=== PATIENT | male | born 1950 | race Caucasian/White ===

== ENCOUNTER 2016-12-22 17:22 | Emergency (ER) | payer MEDICAID ==
[~2016-12-22] VITALS: Ht 188 cm; Wt 90.7 kg
[~2016-12-22 17:22] MED LIST: AZITHROMYCIN250 MG ORAL
[2016-12-22 17:48] VITALS: BP 132/93
[2016-12-22] MEDS ORDERED: VENTOLIN HFA18 GM INH (17:56)
[2016-12-22] MEDS ORDERED: AZITHROMYCIN250 MG ORAL (17:56)
[2016-12-22] MEDS ORDERED: Azithromycin 250mg tab ORAL ONE (18:00)
[2016-12-22 18:01] VITALS: BP 125/78
--- NOTE | 2016-12-22 18:01 | Emergency Room Report ---
History of Present Illness General Chief Complaint: Dyspnea/Respdistress Source: Patient Present Illness HPI 66YOM walk-in with cough, right sided chest pain with cough (not at rest). Smoker for "long time." States history of "bronchitis" but no formal Dx of COPD. Denies fever/chills, abd pain, SOB, sick contacts. Couldnt get in to see PMD until Mid-December so came to ED. Allergies: Coded Allergies: No Known Allergies (Unverified , 10/24/14) Patient History Past Medical History: other - ?copd Past Surgical History: none Pertinent Family History: none Social History: Reports: smoking Immunizations: UTD Reviewed Nursing Documentation: PMH: Agreed, PSxH: Agreed Nursing Documentation-PMH Past Medical History: No History, Except For Hx Cardiac Problems: Yes - a fib Hx COPD: Yes - bronchitis Review of Systems All Other Systems: negative except mentioned in HPI Physical Exam Vital Signs Date Time Temp Pulse Resp B/P Pulse Ox O2 Delivery O2 Flow Rate FiO2 12/22/16 17:37 98.8 92 16 113/73 94 Room Air Sp02 EP Interpretation: reviewed, normal General Appearance: normal inspection, well appearing, no apparent distress, alert, GCS 15, non-toxic Head: normocephalic, atraumatic Eyes: bilateral eye EOMI, bilateral eye PERRL Neck: normal inspection, full range of motion, supple, no bony tend Respiratory: normal inspection, lungs clear, normal breath sounds, no rhonchi, no respiratory distress, no retraction, no accessory muscle use, no wheezing, speaking full sentences Cardiovascular #1: regular rate, rhythm, no edema, normal capillary refill Gastrointestinal: normal inspection, normal bowel sounds, non tender, soft, no guarding, no hernia Genitourinary: no CVA tenderness Musculoskeletal: normal inspection, back normal, normal range of motion, Gris' s Sign negative Neurologic: normal inspection, alert, oriented x3, responsive, marketing sales manager III-XII nml as tested, motor strength/tone normal, speech normal Psychiatric: normal inspection, judgement/insight normal, mood/affect normal Skin: normal inspection, normal color, no rash Lymphatic: normal inspection Medical Decision Making Diagnostic Impression: Primary Impression: CAP (community acquired pneumonia) ER Course Cough, SOB for 1-2 days VSS. Afebrile. Very well appearing. No acute distress No wheezing or rhonchi on exam No systemic symptoms to warrant additional lab, imaging, admission Advised to quit smoking Will tx empirically for COPD exac/CAP with Azithro. Initial dose given in ED. Rx for next 4 days Rx for cough syrup, ventolin PMD followup Last Vital Signs Date Time Temp Pulse Resp B/P Pulse Ox O2 Delivery O2 Flow Rate FiO2 12/22/16 17:48 83 16 Room Air 12/22/16 17:48 97.6 132/93 97 Status: improved Disposition: HOME, SELF-CARE Condition: Improved Scripts Albuterol Sulfate (VENTOLIN HFA) 18 Gm Hfa.aer.ad 1 PUFF INH EVERY 6 HOURS for For Cough, #18 GM 0 Refills Prov: DAISY NATARAJAN M.D. 12/22/16 Azithromycin* (ZITHROMAX*) 250 Mg Tablet 250 MG ORAL DAILY for 4 Days, #4 TAB 0 Refills Prov: DAISY NATARAJAN M.D. 12/22/16 Referrals: YOREFERRING (PCP) Patient Instructions: Community-Acquired Pneumonia, Adult, [id number] Additional Instructions: - Take azithromycin next 4 days as prescribed - Use ventolin inhaler during the day for cough - Drink tea with honey for cough/congestion at night - Follow up with your doctor as needed DAISY NATARAJAN M.D. December 22, 2016 18:01
[2016-12-22] MEDS ORDERED: PHENERGAN6.25 MG/5 ORAL (18:11)
== END 2016-12-22 18:12 | disposition home or self-care (01) ==
LOC: EMR 17:57
DX: J18.9 Pneumonia, unspecified organism (principal); J44.9 Chronic obstructive pulmonary disease, unspecified; I48.91 Unspecified atrial fibrillation; F17.200 Nicotine dependence, unspecified, uncomplicated
CPT/HCPCS: 99284; Q0144

== ENCOUNTER 2017-02-09 13:21 | Emergency (ER) | payer MEDICAID, OTHER ==
[~2017-02-09] VITALS: Ht 190.5 cm; Wt 99.8 kg
[~2017-02-09 13:21] MED LIST changes: +PHENERGAN6.25 MG/5 ORAL; +VENTOLIN HFA18 GM INH
[2017-02-09] MEDS ORDERED: METOPROLOL TART25 MG ORAL (13:36)
[2017-02-09] MEDS ORDERED: ASPIRIN81 MG ORAL (13:36)
[2017-02-09 13:39] VITALS: BP 118/72
[2017-02-09 14:00] VITALS: BP 125/77
[2017-02-09] MEDS ORDERED: Ipratropium 0.02% Inh Soln 2.5ml UD HHN ONE (14:00)
[2017-02-09] MEDS ORDERED: Azithromycin 500 MG in NS 275 ML IV ONE (14:00)
[2017-02-09] MEDS ORDERED: Solu-MEDROL 125mg Inj IVP ONE (14:00)
[2017-02-09] MEDS ORDERED: Azithromycin Inj IV ONE (14:08)
[2017-02-09] MEDS: Albuterol ud Inhalation HHN SCH ×3 (14:16→14:40)
--- NOTE | 2017-02-09 14:30 | Diagnostic Imaging Report ---
Indication: DYSPNEA Technique: One view of the chest Comparison: 10/24/2014 Findings: Lungs and pleural spaces are clear. Heart size is normal . No significant change Impression: No acute process
[2017-02-09 15:00] VITALS: BP 129/58
[2017-02-09 15:00] LABS: BASOPHILS % (AUTO) 1.4 % (0.0-2.0); EOSINOPHILS % (AUTO) 5.6 % (0.0-3.0); LYMPHOCYTES % (AUTO) 39.9 % (20.0-45.0); MEAN CORPUSCULAR HEMOGLOBIN 33.2 PG (27.0-31.0); MEAN CORPUSCULAR HGB CONC 32.4 G/DL (32.0-36.0); MEAN CORPUSCULAR VOLUME 102 FL (80-99); MONOCYTES % (AUTO) 8.6 % (1.0-10.0); NEUTROPHILS % (AUTO) 44.5 % (45.0-75.0); PLATELET COUNT 253 K/UL (150-450); RED BLOOD COUNT 3.93 M/UL (4.70-6.10); RED CELL DISTRIBUTION WIDTH 11.7 % (11.6-14.8); WHITE BLOOD COUNT 9.8 K/UL (4.8-10.8)
[2017-02-09 15:17] LABS: PROTHROMBIN TIME 10.4 SEC (9.30-11.50)
[2017-02-09 15:19] LABS: ALANINE AMINOTRANSFERASE 12 U/L (3-41); ALBUMIN/GLOBULIN RATIO 1.4 (1.0-2.7); ANION GAP 9 (5-15); ASPARTATE AMINO TRANSFERASE 20 U/L (5-40); CALCIUM 9.4 mg/dL (8.6-10.2); CARBON DIOXIDE 30 mEQ/L (20-30); CHLORIDE 99 mEQ/L (98-107); GLOMERULAR FILTRATION RATE > 60 mL/min (>60); HEMOLYSIS 57; POTASSIUM 4.9 mEQ/L (3.4-4.9); SODIUM 138 mEQ/L (135-145); TOTAL PROTEIN 7.4 g/dL (6.6-8.7); TROPONIN I < 0.30 ng/mL (<=0.30)
--- NOTE | 2017-02-09 15:43 | Emergency Room Report ---
History of Present Illness General Chief Complaint: Dyspnea/Respdistress Source: Patient Present Illness HPI Patient presents with dyspnea on exertion. Some wheezes. Has been worsening over past several days. Smokes. Not have nebulizer at home and denies use of inhaler recently. Has not been this dyspneic in past. No calf tenderness or h/ o clots. Has a fib and was taken off of blood thinners except for aspirin. Denies CHF. Chest pressure more than pain. No fevers, chills. Sputum has been clear. No NVD, dysuria, extremity pain, rashes, headaches, change vision, polydipsia. Allergies: Coded Allergies: No Known Allergies (Unverified , 10/24/14) Patient History Past Medical History: see triage record Social History: Reports: smoking Social History Narrative at home Reviewed Nursing Documentation: PMH: Agreed, PSxH: Agreed Nursing Documentation-PMH Hx Cardiac Problems: Yes - a fib Hx COPD: Yes - bronchitis Review of Systems All Other Systems: negative except mentioned in HPI Physical Exam Vital Signs Date Time Temp Pulse Resp B/P Pulse Ox O2 Delivery O2 Flow Rate FiO2 02/09/17 13:29 98.2 90 17 118/72 94 02/09/17 13:39 Room Air 02/09/17 14:12 100 Sp02 EP Interpretation: reviewed, abnormal - interpreted as low by me General Appearance: well appearing, no apparent distress, GCS 15 Head: normocephalic Eyes: bilateral eye PERRL, bilateral eye normal inspection ENT: moist mucus membranes Neck: supple Respiratory: wheezing, expiration Cardiovascular #1: regular rate, rhythm, irregularly irregular Cardiovascular #2: 2+ radial (R) Gastrointestinal: normal inspection, normal bowel sounds, non tender, no mass, non-distended Musculoskeletal: back normal, gait/station normal, normal range of motion, no calf tenderness Neurologic: alert, oriented x3, grossly normal Psychiatric: mood/affect normal Skin: normal inspection, warm/dry Medical Decision Making Diagnostic Impression: Primary Impression: Bronchospasm with bronchitis, acute Additional Impressions: Eosinophilia Atrial fibrillation Qualified Codes: I48.2 - Chronic atrial fibrillation ER Course Patient presents with dyspnea. DDx: AMI, ACS, CHF, COPD exacerbation, PNA, PE amongst others. Exam with bronchospasm. Evaluation with EKG, CXR, labs. Treatment with solumedrol and breathing treatments. EKG, a fib, rate controlled, no ischemia. CXR, COPD, Labs with normal WBC with eosinophilia. Improved with treatment. I suggested hospitalization. 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 Patient ambulated. Some breathlessness and desat to 89-91. I recommended admission again. He states he can't. One more breathing treatment. Improved, but still with low O2 sats. Laboratory Tests Test 02/09/17 14:40 White Blood Count 9.8 K/UL (4.8-10.8) Red Blood Count 3.93 M/UL (4.70-6.10) L Hemoglobin 13.0 G/DL (14.2-18.0) L Hematocrit 40.2 % (42.0-52.0) L Mean Corpuscular Volume 102 FL (80-99) H Mean Corpuscular Hemoglobin 33.2 PG (27.0-31.0) H Mean Corpuscular Hemoglobin Concent 32.4 G/DL (32.0-36.0) Red Cell Distribution Width 11.7 % (11.6-14.8) Platelet Count 253 K/UL (150-450) Mean Platelet Volume 6.0 FL (6.5-10.1) L Neutrophils (%) (Auto) 44.5 % (45.0-75.0) L Lymphocytes (%) (Auto) 39.9 % (20.0-45.0) Monocytes (%) (Auto) 8.6 % (1.0-10.0) Eosinophils (%) (Auto) 5.6 % (0.0-3.0) H Basophils (%) (Auto) 1.4 % (0.0-2.0) Prothrombin Time 10.4 SEC (9.30-11.50) Prothrombin Time INR 1.0 (0.9-1.1) PTT 28 SEC (23-33) Sodium Level 138 mEQ/L (135-145) Potassium Level 4.9 mEQ/L (3.4-4.9) Chloride Level 99 mEQ/L (98-107) Carbon Dioxide Level 30 mEQ/L (20-30) Anion Gap 9 (5-15) Blood Urea Nitrogen 16 mg/dL (7-23) Creatinine 1.0 mg/dL (0.7-1.2) Estimate Glomerular Filtration Rate > 60 mL/min (>60) Glucose Level 99 mg/dL (74-106) Lactic Acid Level 1.20 mmol/L (0.66-2.22) Calcium Level 9.4 mg/dL (8.6-10.2) Total Bilirubin 0.4 mg/dL (0.0-1.2) Aspartate Amino Transferase (AST) 20 U/L (5-40) Alanine Aminotransferase (ALT) 12 U/L (3-41) Alkaline Phosphatase 55 U/L (40-129) Total Creatine Kinase 61 U/L (38-174) Troponin I < 0.30 ng/mL (<=0.30) Pro-B-Type Natriuretic Peptide Pending Total Protein 7.4 g/dL (6.6-8.7) Albumin 4.4 g/dL (3.5-5.2) Globulin 3.0 g/dL Albumin/Globulin Ratio 1.4 (1.0-2.7) EKG Diagnostic Results Rate: normal Rhythm: other - a fib ST Segments: no acute changes Rhythm Strip Diag. Results EP Interpretation: yes Rhythm: no PVC's, no ectopy, other - afib Chest X-Ray Diagnostic Results Chest X-Ray Diagnostic Results : Chest X-Ray Ordered: Yes # of Views/Limited/Complete: 1 View Indication: Shortness of Breath Interpretation: no consolidation, no effusion, no pneumothorax, other - COPD Impression: Other Interpreting ER Provider: Electronic signature Greyson Hawkins MD Last Vital Signs Date Time Temp Pulse Resp B/P Pulse Ox O2 Delivery O2 Flow Rate FiO2 02/09/17 16:53 98.2 96 17 112/64 100 Room Air 21 Status: improved Disposition: HOME, SELF-CARE Condition: Improved Scripts Azithromycin* (ZITHROMAX*) 250 Mg Tablet 250 MG ORAL DAILY, #4 TAB 0 Refills Prov: Greyson Hawkins M.D. 02/09/17 Prednisone* (PREDNISONE*) 10 Mg Tablet 10 MG ORAL DAILY, #21 TAB 0 Refills 4 po QD X 2, 3 po QD X 2, 2 po QD X 2, 1 po QD X 4 Prov: Greyson Hawkins M.D. 02/09/17 Albuterol Sulfate* (ALBUTEROL SULFATE MDI*) 8.5 Gm Hfa.aer.ad 2 PUFF INH Q6H, #1 EA 0 Refills Prov: Greyson Hawkins M.D. 02/09/17 Referrals: [facility] (PCP) Greyson Hawkins M.D. Feb 09, 2017 15:43
[2017-02-09] MEDS ORDERED: Albuterol ud Inhalation HHN ONE (15:45)
[2017-02-09 16:00] VITALS: BP 112/64
[2017-02-09] MEDS ORDERED: ALBUTEROL SULF8.5 GM INH (16:48)
[2017-02-09] MEDS ORDERED: PREDNISONE10 MG ORAL (16:48)
[2017-02-09] MEDS ORDERED: AZITHROMYCIN250 MG ORAL (16:48)
[2017-02-09 16:53] VITALS: BP 112/64
--- NOTE | 2017-02-14 19:07 | Cardiology Report ---
APPROVED REPORT EKG Measurement Heart [id number] Atrial fibrillation Nonspecific T wave abnormality Abnormal ECG
== END 2017-02-09 16:59 | disposition home or self-care (01) ==
LOC: EMR 13:52
DX: J20.9 Acute bronchitis, unspecified (principal); D72.1 Eosinophilia; I48.91 Unspecified atrial fibrillation; J44.9 Chronic obstructive pulmonary disease, unspecified; F17.200 Nicotine dependence, unspecified, uncomplicated
CPT/HCPCS: 36415; 71010; 80053; 82550; 83605; 83880; 84484; 85025; 85610; 85730; 93005; 94640; 94664; 96360; 96361; 96374; 99284; J0456; J2930; J7050

== ENCOUNTER 2017-02-18 14:24 | Emergency (ER) | payer MEDICAID ==
[~2017-02-18] VITALS: Ht 190.5 cm; Wt 95.3 kg
[~2017-02-18 14:24] MED LIST changes: +ALBUTEROL SULF8.5 GM INH; +ASPIRIN81 MG ORAL; +METOPROLOL TART25 MG ORAL; +PREDNISONE10 MG ORAL
[2017-02-18] MEDS ORDERED: Ipratropium 0.02% Inh Soln 2.5ml UD HHN ONE (14:45)
[2017-02-18] MEDS ORDERED: Albuterol ud Inhalation HHN SCH (14:45)
--- NOTE | 2017-02-18 15:05 | Emergency Room Report ---
History of Present Illness General Chief Complaint: Upper Respiratory Illness Source: Patient, Medical Record Present Illness HPI This patient states that he has had recurrent episodes of bronchitis. He has a long heavy smoking history. He admits that he does continue to smoke. She does understand that he needs to stop smoking, however, he has been unable to do so. He states that he was noticed these episodes over the past several years. He states over the past couple months they have become more severe. He has not seen his primary care physician for this. He has not seen a truck jumper. He states that he was seen here in the emergency department a week ago. He states that he was given breathing treatments, antibiotics and felt much better. He states he was doing well until the past few days and he continues to feel short of breath. He denies fever or chills. Denies sputum production. He denies chest pain. He has no other complaints. Allergies: Coded Allergies: No Known Allergies (Unverified , 10/24/14) Patient History Past Medical History: see triage record, AFib, COPD Social History: Reports: alcohol use, smoking, Denies: drug use Reviewed Nursing Documentation: PMH: Agreed, PSxH: Agreed Nursing Documentation-PMH Hx Cardiac Problems: Yes - a fib Hx COPD: Yes - bronchitis Review of Systems All Other Systems: negative except mentioned in HPI Physical Exam Vital Signs Date Time Temp Pulse Resp B/P Pulse Ox O2 Delivery O2 Flow Rate FiO2 02/18/17 14:27 97.9 87 18 109/76 94 Room Air 02/18/17 14:51 2.0 Sp02 EP Interpretation: reviewed, normal General Appearance: no apparent distress, alert, GCS 15, non-toxic Head: normocephalic, atraumatic Eyes: bilateral eye PERRL, bilateral eye normal inspection ENT: hearing grossly normal, normal pharynx, no angioedema, normal voice Neck: full range of motion, supple/symm/no masses Respiratory: chest non-tender, no respiratory distress, no retraction, no accessory muscle use, decreased breath sounds, speaking full sentences Cardiovascular #1: no edema, irregularly irregular Gastrointestinal: normal bowel sounds, non tender, soft, non-distended, no guarding, no rebound Rectal: deferred Musculoskeletal: back normal, gait/station normal, normal range of motion, non- tender Neurologic: alert, oriented x3, responsive, motor strength/tone normal, sensory intact, speech normal Psychiatric: judgement/insight normal, memory normal, mood/affect normal, no suicidal/homicidal ideation Skin: normal color, no rash, warm/dry, well hydrated Medical Decision Making Diagnostic Impression: Primary Impression: Bronchitis ER Course This patient has a clinical presentation consistent with rhonchi the/COPD. Patient has a history heavy smoking. The patient was given albuterol and Atrovent nebulizer treatments. The patient was also given prednisone orally. The patient had significant improvement in subjective shortness of breath. The patient's lung exam improved significantly. I educated the patient on the importance of following up with her primary care physician. Also educated him that he should be seen by a truck jumper and undergo spirometry testing to clearly assess his lung disease. He needs to be on presented of COPD medications. He was educated on the importance of smoking cessation. The patient was given close return precautions and followup instructions. Labs Test 02/18/17 14:50 White Blood Count 13.7 K/UL (4.8-10.8) Red Blood Count 4.27 M/UL (4.70-6.10) Hemoglobin 13.9 G/DL (14.2-18.0) Hematocrit 43.5 % (42.0-52.0) Mean Corpuscular Volume 102 FL (80-99) Mean Corpuscular Hemoglobin 32.6 PG (27.0-31.0) Mean Corpuscular Hemoglobin Concent 32.0 G/DL (32.0-36.0) Red Cell Distribution Width 11.8 % (11.6-14.8) Platelet Count 326 K/UL (150-450) Mean Platelet Volume 5.4 FL (6.5-10.1) Neutrophils (%) (Auto) 49.1 % (45.0-75.0) Lymphocytes (%) (Auto) 38.5 % (20.0-45.0) Monocytes (%) (Auto) 6.3 % (1.0-10.0) Eosinophils (%) (Auto) 4.9 % (0.0-3.0) Basophils (%) (Auto) 1.2 % (0.0-2.0) Sodium Level 138 mEQ/L (135-145) Potassium Level 5.0 mEQ/L (3.4-4.9) Chloride Level 99 mEQ/L (98-107) Carbon Dioxide Level 30 mEQ/L (20-30) Anion Gap 9 (5-15) Blood Urea Nitrogen 16 mg/dL (7-23) Creatinine 1.0 mg/dL (0.7-1.2) Estimat Glomerular Filtration Rate > 60 mL/min (>60) Glucose Level 81 mg/dL (74-106) Calcium Level 9.3 mg/dL (8.6-10.2) Total Bilirubin 0.4 mg/dL (0.0-1.2) Aspartate Amino Transf (AST/SGOT) 23 U/L (5-40) Alanine Aminotransferase (ALT/SGPT) 19 U/L (3-41) Alkaline Phosphatase 49 U/L (40-129) Troponin I < 0.30 ng/mL (<=0.30) Pro-B-Type Natriuretic Peptide 726 pg/mL (0-125) Total Protein 6.8 g/dL (6.6-8.7) Albumin 4.1 g/dL (3.5-5.2) Globulin 2.7 g/dL Albumin/Globulin Ratio 1.5 (1.0-2.7) EKG Diagnostic Results Rate: normal Rhythm: other ST Segments: no acute changes Other Impression A.fib Rhythm Strip Diag. Results EP Interpretation: yes Rate: 80's Rhythm: no PVC's, no ectopy, other Other Impression A.fib Chest X-Ray Diagnostic Results Chest X-Ray Diagnostic Results : Chest X-Ray Ordered: Yes # of Views/Limited/Complete: 1 View Indication: Shortness of Breath Interpretation: no consolidation, no effusion, no pneumothorax, no acute cardiopulmonary disease Impression: No acute disease Interpreting ER Provider: Osei Last Vital Signs Date Time Temp Pulse Resp B/P Pulse Ox O2 Delivery O2 Flow Rate FiO2 02/18/17 14:51 81 17 99 Nasal Cannula 2.0 02/18/17 14:27 97.9 109/76 Status: improved Disposition: HOME, SELF-CARE Condition: Improved Referrals: [facility] (PCP) SAUL PIERRE D.O. Feb 18, 2017 15:05
[2017-02-18 15:13] LABS: BASOPHILS % (AUTO) 1.2 % (0.0-2.0); EOSINOPHILS % (AUTO) 4.9 % (0.0-3.0); LYMPHOCYTES % (AUTO) 38.5 % (20.0-45.0); MEAN CORPUSCULAR HEMOGLOBIN 32.6 PG (27.0-31.0); MEAN CORPUSCULAR VOLUME 102 FL (80-99); MEAN PLATELET VOLUME 5.4 FL (6.5-10.1); MONOCYTES % (AUTO) 6.3 % (1.0-10.0); NEUTROPHILS % (AUTO) 49.1 % (45.0-75.0); PLATELET COUNT 326 K/UL (150-450); RED BLOOD COUNT 4.27 M/UL (4.70-6.10); RED CELL DISTRIBUTION WIDTH 11.8 % (11.6-14.8); WHITE BLOOD COUNT 13.7 K/UL (4.8-10.8)
--- NOTE | 2017-02-18 15:21 | Diagnostic Imaging Report ---
Indication: Dyspnea Comparison: 02/09/17 A single view chest radiograph was obtained. Findings: No definite infiltrate or pulmonary vascular congestion identified. The heart is enlarged. The aorta is mildly enlarged consistent with atherosclerotic vascular disease. The bones are osteopenic. Impression: No acute disease
[2017-02-18 15:26] VITALS: BP 113/67
[2017-02-18 15:30] LABS: TROPONIN I < 0.30 ng/mL (<=0.30)
[2017-02-18] MEDS ORDERED: PredniSONE 20mg tab ORAL ONE (15:30)
[2017-02-18 15:33] LABS: ALANINE AMINOTRANSFERASE 19 U/L (3-41); ALBUMIN/GLOBULIN RATIO 1.5 (1.0-2.7); ANION GAP 9 (5-15); ASPARTATE AMINO TRANSFERASE 23 U/L (5-40); CALCIUM 9.3 mg/dL (8.6-10.2); CARBON DIOXIDE 30 mEQ/L (20-30); CHLORIDE 99 mEQ/L (98-107); GLOMERULAR FILTRATION RATE > 60 mL/min (>60); HEMOLYSIS 144; SODIUM 138 mEQ/L (135-145); TOTAL PROTEIN 6.8 g/dL (6.6-8.7)
[2017-02-18 16:00] VITALS: BP 113/76
== END 2017-02-18 16:00 | disposition left against medical advice (07) ==
LOC: EMR 14:46
DX: J40 Bronchitis, not specified as acute or chronic (principal); F17.200 Nicotine dependence, unspecified, uncomplicated; I48.91 Unspecified atrial fibrillation
CPT/HCPCS: 36415; 71010; 80053; 83880; 84484; 85025; 93005; 94640; 99283

== ENCOUNTER 2017-03-23 22:45 | Emergency (ER) | payer MEDICAID ==
[~2017-03-23] VITALS: Ht 190.5 cm; Wt 99.8 kg
[2017-03-23] MEDS ORDERED: PERCOCET 10-321 EAC1 PO (22:57)
[2017-03-23] MEDS ORDERED: TAMSULOSIN HCL0.4 MG ORAL (22:57)
[2017-03-23] MEDS ORDERED: AMBIEN10 MG ORAL (22:57)
[2017-03-23] MEDS ORDERED: EFFEXOR37.5 MG PO (22:57)
[2017-03-23] MEDS ORDERED: Ipratropium 0.02% Inh Soln 2.5ml UD HHN ONE (23:00)
[2017-03-23] MEDS ORDERED: Albuterol ud Inhalation HHN ONE (23:00)
[2017-03-23] MEDS ORDERED: PredniSONE 20mg tab ORAL ONE (23:00)
[2017-03-23] MEDS ORDERED: AZITHROMYCIN250 MG ORAL (23:07)
[2017-03-23] MEDS ORDERED: PREDNISONE20 MG ORAL (23:07)
--- NOTE | 2017-03-23 23:07 | Emergency Room Report ---
History of Present Illness General Chief Complaint: Dyspnea/Respdistress Source: Patient Present Illness HPI Is a 66-year-old male who has a history of COPD and still smokes half a pack a day. He presents with chief complaint of shortness of breath and wheezing for the last 2 weeks. He started on a nebulizer machine and is not helping much. Also a steroid inhaler. No fever or chills but no nausea vomiting. Worse with exertion. Worse with inspiration. Better with breathing treatment. Denies any other complaint. Has not been on antibiotics. Allergies: Coded Allergies: No Known Allergies (Unverified , 10/24/14) Patient History Past Medical History: see triage record, old chart reviewed, COPD Past Surgical History: other Pertinent Family History: none Social History: Reports: smoking Immunizations: other Reviewed Nursing Documentation: PMH: Agreed, PSxH: Agreed Nursing Documentation-PMH Hx Cardiac Problems: Yes - A. fib Hx COPD: Yes Review of Systems Eye: Denies: eye pain, blurred vision ENT: Denies: ear pain, nose congestion, throat swelling Respiratory: Reports: cough, shortness of breath, wheezing Cardiovascular: Denies: chest pain, palpitations Gastrointestinal: Denies: abdominal pain, diarrhea, nausea, vomiting Musculoskeletal: Denies: back pain, joint pain Skin: Denies: rash Neurological: Denies: headache, numbness Endocrine: Denies: increased thirst, increased urine Hematologic/Lymphatic: Denies: easy bruising All Other Systems: negative except mentioned in HPI Physical Exam Vital Signs Date Time Temp Pulse Resp B/P (MAP) Pulse Ox O2 Delivery O2 Flow Rate FiO2 03/23/17 22:51 98.8 100 18 112/72 95 Room Air vitals normal Sp02 EP Interpretation: reviewed, normal General Appearance: well appearing, no apparent distress, alert Head: normocephalic, atraumatic Eyes: bilateral eye PERRL, bilateral eye EOMI ENT: hearing grossly normal, normal pharynx Neck: full range of motion, supple, no meningismus Respiratory: chest non-tender, decreased breath sounds, accessory muscle use, wheezing Cardiovascular #1: regular rate, rhythm, no murmur Gastrointestinal: normal bowel sounds, non tender, no mass, no organomegaly, no bruit, non-distended Musculoskeletal: back normal, gait/station normal, normal range of motion Psychiatric: mood/affect normal Skin: warm/dry Medical Decision Making Diagnostic Impression: Primary Impression: COPD with exacerbation ER Course patient with COPD exacerbation. Better after breathing treatment and steroid. We'll discharge home. Because of his symptom been ongoing for 2 weeks, we'll put on antibiotics. No evidence of ACS, PE, dissection to name a few. Last Vital Signs Date Time Temp Pulse Resp B/P (MAP) Pulse Ox O2 Delivery O2 Flow Rate FiO2 03/23/17 22:51 98.8 100 18 112/72 95 Room Air Status: improved Disposition: HOME, SELF-CARE Condition: Stable Scripts Azithromycin* (ZITHROMAX*) 250 Mg Tablet 250 MG ORAL DAILY, #6 TAB 0 Refills Take two tablets by mouth today, then take one tablet by mouth daily for four days Prov: OZ DAVID M.D. 03/23/17 Prednisone* (PREDNISONE*) 20 Mg Tablet 60 MG ORAL DAILY, #12 TAB Prov: OZ DAVID M.D. 03/23/17 Patient Instructions: Chronic Obstructive Pulmonary Disease Exacerbation Additional Instructions: Stop smoking. Followup your DrChad in 2-3 days. Return if symptom worsen. Take your inhalers. OZ DAVID M.D. Mar 23, 2017 23:07
[2017-03-23 23:47] VITALS: BP 107/71
== END 2017-03-23 23:47 | disposition home or self-care (01) ==
LOC: EMR 23:03
DX: J44.9 Chronic obstructive pulmonary disease, unspecified (principal); I48.91 Unspecified atrial fibrillation; F17.200 Nicotine dependence, unspecified, uncomplicated
CPT/HCPCS: 99284